=== PATIENT | male | born 1990 | race Caucasian/White ===

== ENCOUNTER 2018-07-05 14:39 | Emergency (ER) | payer OTHER ==
[~2018-07-05] VITALS: Ht 160 cm; Wt 70.9 kg
[2018-07-05] MEDS ORDERED: LIDOCAINE/PF 1% 5 ML VIAL INJ ONE (15:30)
[2018-07-05] MEDS ORDERED: BACITRACIN 0.9 GM PACKET OINTMENT TP ONE (15:30)
[2018-07-05] MEDS ORDERED: PERTUSS(ACELL),DIPH,TET VAC/PF 0.5 ML VIAL IM ONE (15:30)
[2018-07-05 17:29] VITALS: BP 128/74
== END 2018-07-05 17:30 | disposition home or self-care (01) ==
LOC: EMS 14:40
DX: S61.211A Laceration without foreign body of left index finger without damage to nail, initial encounter (principal); W26.8XXA Contact with other sharp object(s), not elsewhere classified, initial encounter; Y93.89 Activity, other specified; Y92.69 Other specified industrial and construction area as the place of occurrence of the external cause; Y99.0 Civilian activity done for income or pay
CPT/HCPCS: 12002; 90471; 90715; 99283; J3490

== ENCOUNTER 2018-07-13 11:28 | Emergency (ER) | payer OTHER ==
[~2018-07-13] VITALS: Ht 157.5 cm; Wt 70.9 kg
[2018-07-13 12:13] VITALS: BP 130/84
== END 2018-07-13 12:59 | disposition home or self-care (01) ==
LOC: EMS 11:29
DX: S61.211D Laceration without foreign body of left index finger without damage to nail, subsequent encounter (principal); Z48.02 Encounter for removal of sutures; X58.XXXD Exposure to other specified factors, subsequent encounter